=== PATIENT | female | born 1985 | race Caucasian/White ===

== ENCOUNTER 2018-04-04 11:51 | Outpatient (CLI) | payer OTHER | END 2018-04-04 13:30 | disposition home or self-care (01) | LOC: L-D 11:51 → OBT 12:39 → L-D 12:40 → OBT 13:30 | DX: O30.003 Twin pregnancy, unspecified number of placenta and unspecified number of amniotic sacs, third trimester (principal); O34.219 Maternal care for unspecified type scar from previous cesarean delivery; Z3A.39 39 weeks gestation of pregnancy | CPT/HCPCS: Z7500 ==

== ENCOUNTER 2018-04-06 07:46 | Inpatient (IN) | payer OTHER ==
[~2018-04-06 07:46] MED LIST: OXYTOCIN 30 UNITS/LR 500 ML BAG IV
[2018-04-06] MEDS ORDERED: MISOPROSTOL 200 MCG TAB PR ×2 (08:00→09:30)
[2018-04-06] MEDS ORDERED: METHYLERGONOVINE 0.2 MG INJ IM (08:00)
[2018-04-06] MEDS ORDERED: CARBOPROST 250 MCG INJ IM (08:00)
[2018-04-06] MEDS ORDERED: OXYTOCIN 30 UNITS/LR 500 ML IV (08:00)
[2018-04-06] MEDS ORDERED: TERBUTALINE 1 ML (08:06)
[2018-04-06 08:08] LABS: ADD MAN DIFF? NO
[2018-04-06 08:11] LABS: ABNORMAL IP MESSAGE 1; EOSINOPHILS # 0.1 10^3/ul (0.0-0.5); HEMOGLOBIN 13.4 g/dl (12.0-16.0); RED CELL DISTRIBUTION WIDTH 17.4 % (11.5-14.5)
[2018-04-06 08:14] LABS: BASOPHILS % 0.2 % (0.0-2.0); HEMATOCRIT 42.4 % (37.0-47.0); LYMPHOCYTES # 1.9 10^3/ul (0.8-2.9); LYMPHOCYTES % 19.4 % (15.0-51.0); MEAN CORPUSCULAR HEMOGLOBIN 21.1 pg (29.0-33.0); MEAN CORPUSCULAR HGB CONC 31.6 g/dl (32.0-37.0); MEAN CORPUSCULAR VOLUME 66.8 fl (82.0-101.0); MONOCYTE # 0.7 10^3/ul (0.3-0.9); MONOCYTES % 6.9 % (0.0-11.0); NEUTROPHIL # 7.1 10^3/ul (1.6-7.5); NEUTROPHILS % 71.7 % (39.0-77.0); PLATELET COUNT 267 10^3/UL (140-415); RED BLOOD COUNT 6.35 10^6/ul (4.20-5.40)
[2018-04-06 08:14] LABS: WHITE BLOOD COUNT 9.9 10^3/ul (4.8-10.8)
[2018-04-06] MEDS: LACTATED RINGER'S 1,000 ML IV ×3 (08:16→18:16)
[2018-04-06 08:27] LABS: POSITIVE DIFF @See below
[2018-04-06] MEDS: TERBUTALINE 1 MG/ML INJ SC (08:39)
[2018-04-06 08:59] LABS: HEPATITIS B SURFACE ANTIGEN NEGATIVE (NEGATIVE)
[2018-04-06] MEDS ORDERED: NA PHOSPHATE/BIPHOS 133 ML ENEMA PR (09:30)
[2018-04-06] MEDS: ONDANSETRON 4 MG INJ IV ×2 (09:40→10:00)
[2018-04-06] MEDS: CITRIC ACID/NA CITRATE 30 ML CUP PO ×2 (09:40→10:00)
[2018-04-06 09:56] LABS: INR 0.91; PARTIAL THROMBOPLASTIN TIME 26.8 Sec (25.0-35.0); PROTIME 12.3 Sec (11.9-14.9)
[2018-04-06] MEDS ORDERED: PHENYLephrine (100 MCG/ML) 5ML SYG ×2 (10:04→10:40)
[2018-04-06] MEDS ORDERED: morphine SULFATE/PF (10 MG/10 ML) INJ (10:04)
[2018-04-06] MEDS ORDERED: BUPIVACAINE 0.75%/DEXT (SPINAL) 2 ML INJ (10:04)
[2018-04-06] MEDS ORDERED: OXYTOCIN 10 UNIT INJ (10:04)
[2018-04-06] MEDS ORDERED: ONDANSETRON 4 MG INJ (10:40)
[2018-04-06] MEDS ORDERED: DEXAMETHASONE 4 MG/ML 1 ML INJ (10:40)
[2018-04-06] MEDS ORDERED: KETOROLAC 30 MG INJ (10:40)
[2018-04-06] MEDS ORDERED: METOCLOPRAMIDE 10 MG INJ (10:40)
[2018-04-06] MEDS ORDERED: IBUPROFEN 600 MG TAB PO (12:00)
[2018-04-06] MEDS: DIPHENHYDRAMINE 50 MG INJ IV ×2 (13:07→20:26)
[2018-04-06] MEDS ORDERED: ACETAMINOPHEN 500 MG TAB PO (14:00)
[2018-04-06] MEDS ORDERED: ONDANSETRON 4 MG INJ IV (14:00)
[2018-04-06] MEDS ORDERED: morphine 2 MG INJ IV ×2 (14:00)
[2018-04-06] MEDS ORDERED: NALBUPHINE HCL (10 MG/1 ML) INJ IV (14:00)
[2018-04-06] MEDS ORDERED: HYDROmorphONE 0.5 MG/0.5 ML SYG IV ×2 (14:00)
[2018-04-06] MEDS ORDERED: HYDROCODONE/APAP (5/325) TAB PO (14:00)
[2018-04-06] MEDS ORDERED: NALOXONE (0.4 MG/ML) INJ IV (14:00)
[2018-04-06] MEDS: OXYTOCIN 30 UNITS/LR 500 ML IV ×3 (15:23→23:30)
[2018-04-06] MEDS: CEFAZOLIN 2 GM/50 ML (PMX) 50 ML IV (17:46)
[2018-04-06 18:39] LABS: RAPID PLASMA REAGIN NONREACTIVE (NR)
[2018-04-06] MEDS: SENNA/DOCUSATE NA (8.6MG/50MG) TAB PO (20:26)
[2018-04-06] MEDS: KETOROLAC 30 MG INJ IV (23:52)
[2018-04-07] MEDS: LACTATED RINGER'S 1,000 ML IV ×2 (01:23→09:23)
[2018-04-07] MEDS: OXYTOCIN 30 UNITS/LR 500 ML IV ×2 (03:30→07:30)
[2018-04-07] MEDS: LEVOTHYROXINE 50 MCG TAB PO (06:04)
[2018-04-07 08:05] LABS: ADD MAN DIFF? NO
[2018-04-07 08:07] LABS: WHITE BLOOD COUNT 10.9 10^3/ul (4.8-10.8)
[2018-04-07 08:07] LABS: ABNORMAL IP MESSAGE 1; BASOPHILS % 0.2 % (0.0-2.0); EOSINOPHILS % 0.4 % (0.0-7.0); HEMATOCRIT 30.8 % (37.0-47.0); HEMOGLOBIN 9.8 g/dl (12.0-16.0); LYMPHOCYTES # 1.9 10^3/ul (0.8-2.9); LYMPHOCYTES % 17.6 % (15.0-51.0); MEAN CORPUSCULAR HEMOGLOBIN 21.6 pg (29.0-33.0); MEAN CORPUSCULAR HGB CONC 31.8 g/dl (32.0-37.0); MEAN CORPUSCULAR VOLUME 67.8 fl (82.0-101.0); MEAN PLATELET VOLUME 12.1 fl (7.4-10.4); MONOCYTE # 0.8 10^3/ul (0.3-0.9); MONOCYTES % 7.4 % (0.0-11.0); NEUTROPHILS % 73.8 % (39.0-77.0); PLATELET COUNT 200 10^3/UL (140-415); RED BLOOD COUNT 4.54 10^6/ul (4.20-5.40); RED CELL DISTRIBUTION WIDTH 15.9 % (11.5-14.5)
[2018-04-07 08:25] LABS: POSITIVE DIFF @See below
[2018-04-07] MEDS: SENNA/DOCUSATE NA (8.6MG/50MG) TAB PO ×2 (09:23→21:20)
[2018-04-07] MEDS: OXYCODONE/ACETAMINOPHEN (5/325) TAB PO ×3 (10:26→19:55)
[2018-04-07] MEDS: IBUPROFEN 600 MG TAB PO ×3 (11:58→23:38)
[2018-04-08] MEDS: OXYCODONE/ACETAMINOPHEN (5/325) TAB PO ×4 (00:02→22:53)
[2018-04-08] MEDS: IBUPROFEN 600 MG TAB PO ×3 (05:43→17:26)
[2018-04-08] MEDS: LEVOTHYROXINE 50 MCG TAB PO (05:43)
[2018-04-08] MEDS: SENNA/DOCUSATE NA (8.6MG/50MG) TAB PO ×2 (09:16→20:50)
[2018-04-09] MEDS: IBUPROFEN 600 MG TAB PO ×3 (00:48→11:25)
[2018-04-09] MEDS: OXYCODONE/ACETAMINOPHEN (5/325) TAB PO ×2 (02:56→15:14)
[2018-04-09] MEDS: LEVOTHYROXINE 50 MCG TAB PO (06:03)
[2018-04-09] MEDS: DIPHTH/TET/ACEL PERTUSS (ADULT) 0.5 ML VIAL IM* (09:00)
[2018-04-09] MEDS: MEASLES,MUMPS,RUBELLA VACCINE INJ SC* (09:00)
[2018-04-09] MEDS: SENNA/DOCUSATE NA (8.6MG/50MG) TAB PO (09:31)
[2018-04-09] MEDS: LANOLIN 7 GM TUBE TOP (11:25)
== END 2018-04-09 18:00 | disposition home or self-care (01) | DRG 766 ==
LOC: L-D 07:46 → PP1 15:52
PROVIDERS: Specialist
PROC: 10D00Z1 Extraction of Products of Conception, Low, Open Approach (ICD-10-PCS; principal; 2018-04-06)
PROC: 0UB70ZZ Excision of Bilateral Fallopian Tubes, Open Approach (ICD-10-PCS; 2018-04-06)
DX: O34.219 Maternal care for unspecified type scar from previous cesarean delivery (principal); Z3A.39 39 weeks gestation of pregnancy; Z37.0 Single live birth; Z30.2 Encounter for sterilization
CPT/HCPCS: 85025; 85610; 85730; 86592; 86850; 86900; 86901; 87340; 99464

== ENCOUNTER 2019-02-13 13:52 | Day surgery (SDC) | payer OTHER ==
[2019-02-13] MEDS: CEFAZOLIN 2 GM/50 ML (PMX) 50 ML IVPB (07:00)
[2019-02-13] MEDS: SOD CHLORIDE 0.9% 1,000 ML IV (07:00)
[2019-02-13 14:55] LABS: ADD MAN DIFF? NO
[2019-02-13 14:57] LABS: ABNORMAL IP MESSAGE 1; BASOPHILS % 0.5 % (0.0-2.0); EOSINOPHILS # 0.1 10^3/ul (0.0-0.5); HEMATOCRIT 41.3 % (37.0-47.0); HEMOGLOBIN 12.9 g/dl (12.0-16.0); LYMPHOCYTES # 1.8 10^3/ul (0.8-2.9); LYMPHOCYTES % 29.8 % (15.0-51.0); MEAN CORPUSCULAR HEMOGLOBIN 20.5 pg (29.0-33.0); MEAN CORPUSCULAR HGB CONC 31.2 g/dl (32.0-37.0); MEAN CORPUSCULAR VOLUME 65.7 fl (82.0-101.0); MEAN PLATELET VOLUME 11.8 fl (7.4-10.4); MONOCYTE # 0.5 10^3/ul (0.3-0.9); MONOCYTES % 8.1 % (0.0-11.0); NEUTROPHIL # 3.7 10^3/ul (1.6-7.5); NEUTROPHILS % 60.3 % (39.0-77.0); PLATELET COUNT 245 10^3/UL (140-415); RED BLOOD COUNT 6.29 10^6/ul (4.20-5.40); RED CELL DISTRIBUTION WIDTH 15.9 % (11.5-14.5)
[2019-02-13 14:57] LABS: WHITE BLOOD COUNT 6.2 10^3/ul (4.8-10.8)
[2019-02-13 15:00] LABS: POSITIVE DIFF @See below
[2019-02-13 15:18] LABS: ALANINE AMINOTRANSFERASE 26 IU/L (13-69); ALBUMIN 4.5 g/dl (3.3-4.9); ALBUMIN/GLOBULIN RATIO 1.87; ALKALINE PHOSPHATASE 68 IU/L (42-121); ANION GAP 10 (5-13); ASPARTATE AMINO TRANSFERASE 17 IU/L (15-46); BILIRUBIN,INDIRECT 0.6 mg/dl (0-1.1); BILIRUBIN,TOTAL 0.6 mg/dl (0.2-1.3); BLOOD UREA NITROGEN 16 mg/dl (7-20); CALCIUM 9.8 mg/dl (8.4-10.2); CARBON DIOXIDE 22 mmol/L (21-31); CHLORIDE 108 mmol/L (97-110); CREATININE 0.87 mg/dl (0.44-1.00); Estimated GFR > 60 mL/min (>60); GLUCOSE 82 mg/dl (70-220); POTASSIUM 3.8 mmol/L (3.5-5.1); SODIUM 140 mmol/L (135-144); TOTAL PROTEIN 6.9 g/dl (6.1-8.1)
[2019-02-13 15:22] LABS: INR 0.93; PROTIME 12.6 Sec (11.9-14.9)
[2019-02-13 15:23] LABS: PARTIAL THROMBOPLASTIN TIME 30.3 Sec (23.0-35.0)
[2019-02-13] MEDS ORDERED: MEPERIDINE 25 MG INJ IV (15:30)
[2019-02-13] MEDS ORDERED: HYDROmorphONE 1 MG/5 ML IV SYRINGE IV ×3 (15:30)
[2019-02-13] MEDS ORDERED: KETOROLAC 30 MG INJ IV (15:30)
[2019-02-13] MEDS ORDERED: FENTAnyl 50 MCG/ML VIAL IV ×2 (15:30)
[2019-02-13] MEDS ORDERED: DIPHENHYDRAMINE 50 MG INJ IV (15:30)
[2019-02-13] MEDS ORDERED: OXYCODONE/ACETAMINOPHEN (5/325) TAB PO (15:30)
[2019-02-13] MEDS ORDERED: PROPOFOL 20 ML (15:35)
[2019-02-13] MEDS ORDERED: METOCLOPRAMIDE 10 MG INJ (15:35)
[2019-02-13] MEDS ORDERED: MIDAZOLAM 1 MG/ML 2 ML INJ (15:35)
[2019-02-13] MEDS ORDERED: ROPIVACAINE 0.5 % 30 ML VIAL (15:35)
[2019-02-13] MEDS ORDERED: ROCURONIUM 50 MG INJ (15:35)
[2019-02-13] MEDS ORDERED: NEOSTIGMINE 3 MG/3 ML SYRINGE (15:38)
[2019-02-13] MEDS ORDERED: GLYCOPYRROLATE 0.4 MG INJ (15:38)
[2019-02-13] MEDS ORDERED: KETOROLAC 30 MG INJ (15:39)
[2019-02-13] MEDS ORDERED: ONDANSETRON 4 MG INJ (15:39)
[2019-02-13] MEDS ORDERED: CEFAZOLIN 1 GM INJ (15:41)
[2019-02-13] MEDS ORDERED: HYDROCODONE/APAP (5/325) TAB PO (16:30)
[2019-02-13] MEDS: ONDANSETRON 4 MG INJ IV (16:43)
[2019-02-13] MEDS: FENTAnyl 50 MCG/ML VIAL IV ×2 (16:43→17:03)
[2019-02-13] MEDS: OXYCODONE/ACETAMINOPHEN (5/325) TAB PO (18:00)
== END 2019-02-13 18:21 | disposition home or self-care (01) ==
LOC: SDS 13:52
DX: K80.10 Calculus of gallbladder with chronic cholecystitis without obstruction (principal)
CPT/HCPCS: 47562; 80053; 85025; 85610; 85730; 88304